=== PATIENT | male | born 1955 | race Caucasian/White ===

== ENCOUNTER 2024-03-05 06:34 | Day surgery (SDC) | payer OTHER, SELFPAY ==
[2024-02-24 08:53] LABS: Hematocrit 46.2 % (39.0-52.0); Hemoglobin 15.8 g/dL (13.0-18.0); Mean Corp Hgb Conc. 34.2 g/dL (33.0-37.0); Mean Corpuscular Volume 87.8 fL (80.0-94.0); Mean Platelet Volume 9.8 fL (7.4-10.4); Platelet Count 184 10^3/uL (130-400); Red Blood Cell Count 5.26 10^6/uL (4.70-6.10); Red Cell Dist. Width 12.3 % (11.5-14.5); White Blood Cell Count 5.8 10^3/uL (4.8-10.8)
[2024-02-24 09:12] LABS: Blood Urea Nitrogen 23 mg/dl (9-20); Calcium 8.9 mg/dl (8.4-10.2); Carbon Dioxide 31 mmol/L (22-30); Chloride 104 mmol/L (98-107); Glucose 92 mg/dl (70-99); Potassium 4.1 mmol/L (3.5-5.1); Sodium 143 mmol/L (135-145); eGFR > 60.00
[2024-02-24 13:50] VITALS: BMI 21.9
--- NOTE | 2024-03-05 07:15 | HP.FOC2 ---
Focused History & Physical
Chief Complaint
HPI:
Chief Complaint: Left inguinal hernia
HPI / Indication for Planned Procedure: Patient is a 69-year-old male recently seen in outpatient surgical evaluation secondary to a history of left inguinal swelling and some discomfort. Physical examination confirmed the presence of a reducible
left inguinal hernia. Patient presents today for scheduled operative correction.
Relevant Past Medical History: Negative (Denies any significant active or previous medical history)
Relevant Social History: Negative
Relevant Family History: Negative
Relevant Past Surgical History: Negative
Review of Systems
Review of Pertinent Systems: All Systems Negative
Medication
See Medication form for detailed medications: Yes
Medication List (including Herbals & OTC):
ascorbic acid (vitamin C) 100 mg tablet (Vitamin C) 100 mg PO DAILY 02/24/24
docosahexaenoic acid (dha)-epa 120 mg-180 mg capsule (Fish Oil) 1 cap PO DAILY 02/24/24
glucosamine-chondroitin 250 mg-200 mg tablet (Osteo Bi-Flex) 2 tab PO PC 02/24/24
ibuprofen 200 mg tablet (Advil) 200 mg PO Q6H PRN pain 02/24/24
Medications Reviewed: Yes
Allergies and Reactions
Patient has Allergies: Yes
Noted Allergies and Reactions:
Allergy/AdvReac Type Severity Reaction Status Date / Time
Penicillins Allergy Rash Verified 02/24/24 11:27
Pertinent Physical Exam
All Other Systems: Negative
Head/Neck: Normal
Lungs: Normal
Heart: Normal
Abdomen: Other (Reducible left inguinal hernia)
Extremities: Normal
Neurological: Normal
Diagnosis / Assessment
69-year-old male presenting for scheduled operative correction symptomatic left inguinal hernia
Plan / Procedure
Robotic assisted laparoscopic repair left inguinal hernia with mesh
Anesthesia/Sedation to be done by Anesthesia Provider: Yes
[2024-03-05 07:57] VITALS: BP 138/86
[2024-03-05 08:03] VITALS: BMI 21.9
[2024-03-05] MEDS: TYLENOL 1000 MG PO (08:08)
[2024-03-05] MEDS: VANCOCIN 200 IV (08:08)
[2024-03-05] MEDS: NORMOSOL-R/PLASMALYTE-A 1000 IV (08:08)
--- NOTE | 2024-03-05 08:56 | W.SUR.PREOP ---
Pre-Operative Surgical Note
-
I have examined this patient prior to the performance of the scheduled procedure.
The patient's condition is unchanged from the time of the current History and
Physical and the patient is able to undergo the scheduled procedure.
--- NOTE | 2024-03-05 11:15 | W.IMMPOSTOP ---
Addendum entered and electronically signed by Delfin Montalvo MD 03/05/24 11:53:
#[id number]
Original Note:
Surgical Immed Post Op Note
-
Primary Surgeon: Selvin
Assisting Surgeon: Zainab Cooper PA-C
Pre-op Diagnosis: Left inguinal hernia
Post-op Diagnosis: Bilateral inguinal hernias
Procedure Performed: Robotic assisted laparoscopic repair of bilateral inguinal hernias with mesh; 3D max large mid weight x 2
Anesthesia Type: GETA +0.25% Marcaine
Specimen / Cultures: None
Estimated Blood Loss: 8 mL
Complications: None immediate
Operative Findings: left inguinal hernia -direct; incidental right inguinal hernia (direct and indirect component); 3D max large mid weight mesh repair x 2. Plication of pseudosac of left inguinal region with 2-0 PDS to Joseph's.
The assistance of Zainab Cooper PA-C was required due to the complexity of the procedure. During the procedure Zainab Cooper PA-C assisted with port placement, robotic instrumentation and suture material exchanges, and closure of the surgical incision
sites. I was present for the entirety of the operative procedure.
[2024-03-05 11:26] VITALS: BP 138/86; BP 144/65
[2024-03-05 11:30] VITALS: BP 125/62
[2024-03-05 11:45] VITALS: BP 117/65
[2024-03-05 12:15] VITALS: BP 108/68
[2024-03-05 12:44] VITALS: BP 117/70
== END 2024-03-05 12:56 | disposition home or self-care (01) ==
LOC: SDS 06:34
PROVIDERS: ATTENDING PHYSICIAN Surgery; FAMILY PHYSICIAN Family Medicine
DX: K40.20 Bilateral inguinal hernia, without obstruction or gangrene, not specified as recurrent (principal)
CPT/HCPCS: 49650; 36415; 80048; 85027; 93005; C1781